=== PATIENT | male | born 1985 | race Hispanic/Latino ===

== ENCOUNTER 2023-03-16 19:33 | Emergency (ER) | payer OTHER ==
--- NOTE | 2023-03-16 22:34 | EDPHYS ---
Physician Documentation [facility] Name: Alfredo Leon Jr Age: 37 yrs Sex: Male : 1985 Arrival Date: 03/16/2023 Time: 19:33 Bed DIS3 Private MD: ED Physician De Barragan HPI: 03/16 20:33 This 37 yrs old Male presents to ER via Ambulatory with complaints of Sore cp Throat, Ear Pain, Cough, Fever. 20:33 The patient presents with sore throat. The patient describes throat pain as scratchy. cp Onset: The symptoms/episode began/occurred 2 day(s) ago. Associated signs and symptoms: Pertinent positives: cough, earache, fever, Pertinent negatives diarrhea, vomiting. Historical: - Allergies: 19:43 No Known Allergies; nj1 - PMHx: 19:43 Depressive disorder; PTSD; Anxiety; nj1 - PSHx: 19:43 None; nj1 - Immunization history:: Client reports receiving the 2nd dose of the Covid vaccine. - Social history:: Smoking status: Patient denies any tobacco usage or history of. ROS: 20:40 Constitutional: Negative for body aches, chills, fever, poor PO intake, cp 20:40 Eyes: Negative for injury, pain, redness, and discharge, cp 20:40 ENT: Positive for ear pain, sore throat, Negative for drainage from ear(s), difficulty swallowing, difficulty handling secretions, 20:40 Respiratory: Positive for cough, Negative for shortness of breath, wheezing, 20:40 Abdomen/GI: Negative for vomiting, diarrhea, constipation, 20:40 Skin: Negative for rash, 20:40 Neuro: Negative for headache, 20:40 All other systems are negative, Exam: 20:45 Constitutional: The patient appears in no acute distress, alert, awake, non-toxic, well cp developed, well nourished, 20:45 Head/Face: Normocephalic, atraumatic. cp 20:45 Eyes: Periorbital structures: appear normal, Conjunctiva: normal, no exudate, no injection, Sclera: no appreciated abnormality, Lids and lashes: appear normal, bilaterally, 20:45 ENT: External ear(s): are unremarkable, Ear canal(s): are normal, clear, TM's: dullness, bilaterally, Nose: is normal, Mouth: Lips: moist, Oral mucosa: moist, Posterior pharynx: Airway: no evidence of obstruction, patent, Tonsils: no enlargement, no exudate, erythema, that is mild, exudate, is not appreciated, 20:45 Neck: ROM/movement: is normal, is supple, without pain, no range of motions limitations, no meningismus, Lymph nodes: no appreciated lymphadenopathy, 20:45 Chest/axilla: Inspection: normal, 20:45 Cardiovascular: Rate: normal, Rhythm: regular, 20:45 Respiratory: the patient does not display signs of respiratory distress, Respirations: normal, no use of accessory muscles, no retractions, labored breathing, is not present, Breath sounds: decreased breath sounds, are not appreciated, stridor, is not appreciated, + upper airway congestion. 20:45 Abdomen/GI: Exam negative for discomfort, distension, guarding, Inspection: abdomen appears normal, 20:45 Skin: no rash present. Vital Signs: 19:40 BP 141 / 92; Pulse 77; Resp 17; Temp 99; Pulse Ox 98% ; Weight 132.9 kg; Height 5 ft. 7 nj1 in. ; Pain 5/10; 22:41 BP 118 / 62; Pulse 63; Resp 18; Pulse Ox 99% on R/A; kl 19:40 Body Mass Index 45.89 (132.90 kg, 170.18 cm) nj1 19:40 Pain Scale: Adult nj1 MDM: 19:47 Patient medically screened. 22:31 Data reviewed: vital signs, nurses notes, lab test result(s), and as a result, I will cp discharge patient. 22:31 Differential diagnosis: group A strep tonsillitis, peritonsillar abscess pharyngitis, cp tonsillitis, upper respiratory infection, uvulitis. Counseling: I had a detailed discussion with the patient and/or guardian regarding the historical points, exam findings, and any diagnostic results supporting the discharge/admit diagnosis, lab results, to return to the emergency department if symptoms worsen or persist or if there are any questions or concerns that arise at home. 03/16 20:13 Order name: Strep; Complete Time: 22:30 03/16 22:30 Interpretation: Reviewed. 03/16 20:13 Order name: COVID-19 SARS RT PCR; Complete Time: 22:30 cp 03/16 22:30 Interpretation: Reviewed. cp 03/16 20:13 Order name: Influenza Screen (a \T\ B); Complete Time: 22:30 cp 03/16 22:30 Interpretation: Reviewed. cp 03/16 21:44 Order name: Throat Culture EDMS Administered Medications: No medications were administered Disposition Summary: 03/16/23 22:33 Discharge Ordered Notes: Location: Home cp Problem: new cp Symptoms: are unchanged cp Condition: Stable cp Diagnosis - Acute pharyngitis, unspecified cp - Cough cp Followup: cp - With: Private Physician - When: 2 - 3 days - Reason: Worsening of condition Discharge Instructions: - Discharge Summary Sheet cp - Pharyngitis cp - Cough, Adult cp Forms: - Work release form kl - Medication Reconciliation Form cp - Thank You Letter cp - Antibiotic Education cp - Prescription Opioid Use cp - Patient Portal Instructions cp - Leadership Thank You Letter cp Prescriptions: - Bromfed DM 2-30-10 mg/5 mL Oral syrup - administer 10 milliliter ORAL route every 6 hours as needed for cold symptoms; cp 240 milliliter; Refills: 0, Product Selection Permitted - Ibuprofen 800 mg Oral Tablet - take 1 tablet ORAL route every 8 hours As needed take with food; 30 tablet; cp Refills: 0, Product Selection Permitted Signatures: Dispatcher [employer] EDMS De Pereira PA PA cp Jaco, Norma, RN RN nj1
--- NOTE | 2023-03-16 22:34 | ER ---
Nurse's Notes [facility] Name: Alfredo Leon Jr Age: 37 yrs Sex: Male : 1985 Arrival Date: 03/16/2023 Time: 19:33 Bed DIS3 Private MD: Diagnosis: Acute pharyngitis, unspecified;Cough Presentation: 03/16 19:40 Chief complaint: Patient states: Sore throat, left ear pain, cough and fever since wy1 Monday, getting worse. Has been taking nyquil every 4 hours since. Coronavirus screen: Vaccine status: Patient reports receiving the 2nd dose of the covid vaccine. Ebola Screen: Patient denies travel to an Ebola-affected area in the 21 days before illness onset. Initial Sepsis Screen:. Initial Sepsis Screen: Does the patient meet any 2 criteria? No. Patient's initial sepsis screen is negative. Does the patient have a suspected source of infection? No. Patient's initial sepsis screen is negative. Risk Assessment: Do you want to hurt yourself or someone else? Patient reports no desire to harm self or others. Onset of symptoms was March 14, 2023. 19:40 Method Of Arrival: Ambulatory [facility] 19:40 Acuity: HAILEY 4 nj1 Triage Assessment: 22:43 General: Appears in no apparent distress. Behavior is calm, cooperative. Historical: - Allergies: 19:43 No Known Allergies; nj1 - PMHx: 19:43 Depressive disorder; PTSD; Anxiety; [facility] - PSHx: 19:43 None; nj1 - Immunization history:: Client reports receiving the 2nd dose of the Covid vaccine. - Social history:: Smoking status: Patient denies any tobacco usage or history of. Screenin:42 [facility] ED Fall Risk Assessment (Adult) History of falling in the last 3 months, including since admission No falls in past 3 months (0 pts) Confusion or Disorientation No (0 pts) Intoxicated or Sedated No (0 pts) Impaired Gait No (0 pts) Mobility Assist Device Used No (0 pt) Altered Elimination No (0 pt) Score/Fall Risk Level 0 - 2 = Low Risk Oriented to surroundings, Maintained a safe environment. Abuse screen: Denies threats or abuse. Nutritional screening: No deficits noted. Tuberculosis screening: No symptoms or risk factors identified. Assessment: 22:41 Reassessment: Patient appears in no apparent distress at this time. Pain: Complains of kl pain in throat Pain currently is 2 out of 10 on a pain scale. Respiratory: Airway is patent Respiratory effort is even, unlabored, Breath sounds are clear bilaterally. EENT: Throat is pink. Vital Signs: 19:40 BP 141 / 92; Pulse 77; Resp 17; Temp 99; Pulse Ox 98% ; Weight 132.9 kg; Height 5 ft. 7 nj1 in. ; Pain 5/10; 22:41 BP 118 / 62; Pulse 63; Resp 18; Pulse Ox 99% on R/A; kl 19:40 Body Mass Index 45.89 (132.90 kg, 170.18 cm) [facility] 19:40 Pain Scale: Adult [facility] ED Course: 19:34 Patient arrived in ED. 3 19:43 Triage completed. wy1 19:44 De Pereira PA is PHCP. cp 19:44 De Barragan MD is Attending Physician. cp 19:44 Arm band placed on right wrist. [facility] 20:31 Influenza Screen (a \T\ B) Sent. 20:31 COVID-19 SARS RT PCR Sent. 20:31 Strep Sent. 22:42 No provider procedures requiring assistance completed. Patient did not have IV access kl during this emergency room visit. Administered Medications: No medications were administered Medication: 22:42 VIS not applicable for this client. kl Outcome: 22:33 Discharge ordered by . cp 22:42 Discharged to home ambulatory, 22:42 Condition: stable 22:42 Discharge instructions given to patient, Instructed on discharge instructions, follow up and referral plans. medication usage, Demonstrated understanding of instructions, follow-up care, medications, Prescriptions given X 2, 22:43 Patient left the ED. kl Signatures: Emilia Kang RN De Rosa PA PA cp Radha Aguilar [facility] Sharlene Pruitt Esther Jacobo RN RN [facility]
[2023-03-16 23:19] VITALS: TEMP 99
[2023-03-16 23:20] VITALS: BP 118/62; O2SAT 99
== END 2023-03-16 22:43 | disposition home or self-care (01) ==
LOC: ER 19:33
DX: J02.9 Acute pharyngitis, unspecified (principal); R05.9 Cough, unspecified; Z11.52 Encounter for screening for COVID-19
CPT/HCPCS: 87070; 87081; 87635; 87804; 99283